=== PATIENT | female | born 1985 | race Caucasian/White ===

== ENCOUNTER 2017-10-09 01:33 | Emergency (ER) | payer OTHER ==
[~2017-10-09] VITALS: Ht 170.2 cm; Wt 115.7 kg
[~2017-10-09 01:33] MED LIST: NON; OMEPRAZOLE20 MG; PEPCID20 MG PO; PERCOCET 5/3251 TAB PO; RECTICARE30 GM TP; ZOFRAN4 MG PO
[2017-10-09] MEDS ORDERED: KETO10TA2 PO (02:49)
== END 2017-10-09 03:02 | disposition home or self-care (01) ==
LOC: ER 01:33
DX: S93.491A Sprain of other ligament of right ankle, initial encounter (principal); X50.0XXA Overexertion from strenuous movement or load, initial encounter; Y93.89 Activity, other specified; Y92.098 Other place in other non-institutional residence as the place of occurrence of the external cause; Y99.8 Other external cause status

== ENCOUNTER 2019-07-21 17:08 | Emergency (ER) | payer OTHER ==
[~2019-07-21] VITALS: Ht 170.2 cm; Wt 117.9 kg
[~2019-07-21 17:08] MED LIST changes: +KETO10TA2 PO
== END 2019-07-21 19:25 | disposition home or self-care (01) ==
LOC: ER 17:08
DX: R60.0 Localized edema (principal); R23.2 Flushing; R51 Headache

== ENCOUNTER 2020-05-01 14:03 | Emergency (ER) | payer OTHER ==
[~2020-05-01] VITALS: Ht 170.2 cm; Wt 122.5 kg
[2020-05-01] MEDS ORDERED: KETO10TA2 PO (15:37)
[2020-05-01] MEDS ORDERED: ORPHENADRINE C100 MG PO (15:37)
== END 2020-05-01 16:22 | disposition home or self-care (01) ==
LOC: ER 14:03
DX: S33.5XXA Sprain of ligaments of lumbar spine, initial encounter (principal); W18.39XA Other fall on same level, initial encounter; Y93.89 Activity, other specified; Y92.234 Operating room of hospital as the place of occurrence of the external cause; Y99.8 Other external cause status

== ENCOUNTER 2020-09-14 05:48 | Day surgery (SDC) | payer OTHER ==
[~2020-09-14 05:48] MED LIST changes: +ORPHENADRINE C100 MG PO
== END 2020-09-14 10:00 | disposition home or self-care (01) ==
LOC: AMB-ENDOS 05:48
PROVIDERS: ATTEND Surgery
DX: K29.60 Other gastritis without bleeding (principal); K44.9 Diaphragmatic hernia without obstruction or gangrene; Z20.822 Contact with and (suspected) exposure to COVID-19

== ENCOUNTER 2022-01-15 08:00 | Outpatient (CLI) | payer OTHER | END 2022-01-15 08:05 | disposition home or self-care (01) | LOC: PPH VACUNA 08:00 | PROVIDERS: ATTEND Emergency Medicine Pediatric Emergency Medicine | DX: Z23 Encounter for immunization (principal) ==

== ENCOUNTER 2022-05-21 07:51 | Outpatient (CLI) | payer OTHER | END 2022-05-21 07:52 | disposition home or self-care (01) | LOC: LAB 07:51 | DX: Z03.818 Encounter for observation for suspected exposure to other biological agents ruled out (principal) ==

== ENCOUNTER 2022-05-30 17:10 | Emergency (ER) | payer OTHER ==
[~2022-05-30] VITALS: Ht 157.5 cm; Wt 108.4 kg
== END 2022-05-30 21:19 | disposition home or self-care (01) ==
LOC: ER 17:10
DX: S30.0XXA Contusion of lower back and pelvis, initial encounter (principal); W01.0XXA Fall on same level from slipping, tripping and stumbling without subsequent striking against object, initial encounter; Y93.89 Activity, other specified; Y92.63 Factory as the place of occurrence of the external cause

== ENCOUNTER 2023-07-27 01:39 | Emergency (ER) | payer OTHER ==
[~2023-07-27] VITALS: Ht 167.6 cm; Wt 131.5 kg
[~2023-07-27 01:39] MED LIST changes: +METAXALONE800 MG PO
[2023-07-27] MEDS ORDERED: GUAIFENESIN/DEXTROMETHORPHAN 100 MG/5 ML ML PO ONE (02:15)
[2023-07-27] MEDS ORDERED: LEVALBUTEROL HCL 1.25 MG/3 ML SOLUTION IH SCH (02:15)
[2023-07-27] MEDS ORDERED: METHYLPREDNISOLONE SOD SUCC 125 MG VIAL IV ONE (02:15)
[2023-07-27 03:27] LABS: HEMATOCRIT 31.6 % (36.0-45.00); HEMOGLOBIN 10.3 g/dL (12.0-15.00); MEAN CELL VOLUME 76.9 fL (80.00-100.00); MEAN CORPUSCULAR HEMOGLOBIN 25.2 pg (27.00-32.0); MEAN CORPUSCULAR HGB CONC 32.7 g/dl (32.0-36.0); PLATELET COUNT 312 K/uL (150-450); RED BLOOD COUNT 4.11 M/uL (4.00-6.00)
[2023-07-27 03:46] LABS: ALBUMIN 2.5 gm/dL (3.4-5.0); BILIRUBIN TOTAL 0.22 mg/dL (0.3-1.2); CALCIUM 8.5 mg/dL (8.5-10.1); CREATININE SERUM 0.51 mg/dL (0.55-1.02); GFR 136.45; GLOBULINA 4.4 G/DL (2.4-3.5); POTASSIUM 4.12 mEq/L (3.5-5.1); TOTAL PROTEIN 6.9 gm/dL (6.4-8.2)
[2023-07-27 03:47] LABS: ABG PH 7.437 (7.35-7.45); ABG pCO2 32.2 mmHg (35-45); BASE EXCESS -1.9 mmol/l; BICARBONATE 21.3 mmol/l (23-25); SaO2 98.2 %; Tco2 22.3 mmol/l; allen test SATISFACTORY; o2 21 %; puncture site RADIAL RIGHT
[2023-07-27] MEDS ORDERED: TUSSIN100 MG/51 PO (03:53)
[2023-07-27] MEDS ORDERED: XOPENEX CO1.25 MG/0. IH (03:53)
[2023-07-27] MEDS ORDERED: ZITHROMAX500 MG PO (03:53)
== END 2023-07-27 04:04 | disposition home or self-care (01) ==
LOC: ER 01:39
PROVIDERS: General Practice
DX: R53.81 Other malaise (principal); J06.9 Acute upper respiratory infection, unspecified; Z20.822 Contact with and (suspected) exposure to COVID-19

== ENCOUNTER 2023-08-10 02:49 | Inpatient (IN) | payer OTHER ==
[~2023-08-10] VITALS: Ht 167.6 cm; Wt 2.7 kg
[~2023-08-10 02:49] MED LIST changes: +TUSSIN100 MG/51 PO; +XOPENEX CO1.25 MG/0. IH; +ZITHROMAX500 MG PO
[2023-08-10] MEDS ORDERED: GUAIFENESIN 200 MG/10 ML BLIST.PACK PO SCH (02:53)
[2023-08-10] MEDS ORDERED: PRENATAL TABLE1 EAC1 PO (02:56)
[2023-08-10] MEDS ORDERED: BUDEO.25 IH (02:57)
[2023-08-10] MEDS ORDERED: FAMOtidine 20 MG TABLET PO ONE (03:00)
[2023-08-10] MEDS ORDERED: RINGERS SOLUTION,LACTATED 1,000 ML IV SCH ×2 (07:15→14:15)
[2023-08-10] MEDS ORDERED: LEVALBUTEROL HCL 1.25 MG/3 ML SOLUTION IH ONE (12:00)
[2023-08-10] MEDS ORDERED: METOCLOPRAMIDE HCL 10 MG in DEXTROSE 5 % IN WATER 50 ML IV ONE (12:00)
[2023-08-10] MEDS ORDERED: CITRIC ACID/SODIUM CITRATE 30 ML BLIST.PACK PO ONE ×2 (12:00→13:09)
[2023-08-10 12:04] LABS: HEMATOCRIT 32.8 % (36.0-45.00); HEMOGLOBIN 10.6 g/dL (12.0-15.00); MEAN CELL VOLUME 76.1 fL (80.00-100.00); MEAN CORPUSCULAR HEMOGLOBIN 24.7 pg (27.00-32.0); MEAN CORPUSCULAR HGB CONC 32.5 g/dl (32.0-36.0); PLATELET COUNT 308 K/uL (150-450)
[2023-08-10] MEDS ORDERED: ERYTHROMYCIN BASE 1 GM TUBE OP ONE ×2 (12:15→14:15)
[2023-08-10] MEDS ORDERED: OXYTOCIN 10 UNITS/ML VIAL IV ONE (12:15)
[2023-08-10 12:25] LABS: INR < 0.93; PARTIAL THROMBOPLASTIN TIME 27.3 SECONDS (22.0-34.0); PROTHROMBIN TIME 9.8 SECONDS (9.0-11.5)
[2023-08-10 12:29] LABS: ALBUMIN 2.6 gm/dL (3.4-5.0); BILIRUBIN TOTAL 0.35 mg/dL (0.3-1.2); CALCIUM 8.5 mg/dL (8.5-10.1); CREATININE SERUM 0.65 mg/dL (0.55-1.02); GFR 103.13; GLOBULINA 4.5 G/DL (2.4-3.5); POTASSIUM 4.05 mEq/L (3.5-5.1); TOTAL PROTEIN 7.1 gm/dL (6.4-8.2)
[2023-08-10] MEDS ORDERED: OXYTOCIN 10 UNITS/ML VIAL ONE (12:44)
[2023-08-10] MEDS ORDERED: ERYTHROMYCIN BASE 3.5 GM OINT...G. OP ONE (12:44)
[2023-08-10] MEDS ORDERED: OXYTOCIN 1,000 ML IV ONE (14:15)
[2023-08-10] MEDS ORDERED: MORPHINE SULFATE 4 MG/ML CARTRIDGE IV PRN (14:15)
[2023-08-10] MEDS ORDERED: SIMETHICONE 125 MG CAPSULE PO SCH (17:00)
[2023-08-10] MEDS ORDERED: GABAPENTIN 300 MG CAPSULE PO SCH (17:00)
[2023-08-10] MEDS ORDERED: ONDANSETRON HCL 2 MG/ML VIAL IV SCH (18:00)
[2023-08-10] MEDS ORDERED: KETOROLAC TROMETHAMINE 30 MG VIAL IV SCH (18:00)
[2023-08-10] MEDS ORDERED: ACETAMINOPHEN 500 MG GEL..CAP PO SCH (18:00)
[2023-08-11 07:42] LABS: HEMATOCRIT 25.4 % (36.0-45.00); MEAN CELL VOLUME 76.6 fL (80.00-100.00); MEAN CORPUSCULAR HGB CONC 32.8 g/dl (32.0-36.0); PLATELET COUNT 244 K/uL (150-450); RED BLOOD COUNT 3.32 M/uL (4.00-6.00); RED CELL DISTRIBUTION WIDTH 16.3 % (11.5-14.5)
[2023-08-11 07:50] LABS: HEMOGLOBIN 8.3 g/dL (12.0-15.00)
[2023-08-11] MEDS ORDERED: OxyCODONE HCL 5 MG TABLET (ROXICODONE) PO PRN (08:00)
[2023-08-11] MEDS ORDERED: KETOROLAC TROMETHAMINE 10 MG TABLET PO SCH (08:00)
[2023-08-11] MEDS ORDERED: SENNOSIDES 1 TAB TABLET PO SCH (09:00)
[2023-08-11] MEDS ORDERED: ENOXAPARIN SODIUM 40 MG/0.4 ML SYRINGE SUBCUTANEO SCH (09:00)
== END 2023-08-12 11:01 | disposition home or self-care (01) | DRG 788 ==
LOC: OBS/DEL 02:49 → OB/GYN 11:29 → LDR 11:29 → OB/GYN 14:27
PROVIDERS: ADMIT Obstetrics & Gynecology; ATTEND Obstetrics & Gynecology
PROC: 4A1HXCZ Monitoring of Products of Conception, Cardiac Rate, External Approach (ICD-10-PCS; 2023-08-10)
PROC: 10D00Z1 Extraction of Products of Conception, Low, Open Approach (ICD-10-PCS; principal; 2023-08-10 12:00)
DX: O36.8130 Decreased fetal movements, third trimester, not applicable or unspecified (principal); Z3A.37 37 weeks gestation of pregnancy; Z37.0 Single live birth; Z20.822 Contact with and (suspected) exposure to COVID-19

== ENCOUNTER 2024-02-28 23:34 | Emergency (ER) | payer OTHER ==
[~2024-02-28] VITALS: Ht 167.6 cm; Wt 122.5 kg
[~2024-02-28 23:34] MED LIST changes: +BUDEO.25 IH; +PRENATAL TABLE1 EAC1 PO
[2024-02-29] MEDS ORDERED: 0.9 % SODIUM CHLORIDE 1,000 ML IV STA (01:40)
[2024-02-29] MEDS ORDERED: ONDANSETRON HCL 2 MG/ML VIAL IV STA (01:42)
[2024-02-29] MEDS ORDERED: FAMOtidine 10 MG/ML (4ML VIAL) IV PUSH STA (01:42)
[2024-02-29] MEDS ORDERED: HYOSCYAMINE SULFATE 0.125 MG TAB.SUBL SL ONE (01:45)
[2024-02-29 02:48] LABS: URINE APPEARANCE Cloudy; URINE BILIRRUBIN Negative (NEGATIVE); URINE BLOOD Negative; URINE COLOR Dark Yellow; URINE GLUCOSE Negative (NEGATIVE); URINE KETONE Trace (NEGATIVE); URINE LEUKOCYTE Negative; URINE NITRATE Negative
[2024-02-29 02:50] LABS: ALBUMIN 3.3 gm/dL (3.4-5.0); BILIRUBIN TOTAL 0.17 mg/dL (0.3-1.2); CALCIUM 8.1 mg/dL (8.5-10.1); CREATININE SERUM 0.68 mg/dL (0.55-1.02); GFR 97.36; GLOBULINA 4.9 G/DL (2.4-3.5); POTASSIUM 3.56 mEq/L (3.5-5.1); TOTAL PROTEIN 8.2 gm/dL (6.4-8.2)
[2024-02-29 02:52] LABS: HEMATOCRIT 33.1 % (36.0-45.00); HEMOGLOBIN 10.6 g/dL (12.0-15.00); MEAN CORPUSCULAR HEMOGLOBIN 23.8 pg (27.00-32.0); MEAN CORPUSCULAR HGB CONC 32.2 g/dl (32.0-36.0); PLATELET COUNT 378 K/uL (150-450); RED BLOOD COUNT 4.47 M/uL (4.00-6.00); RED CELL DISTRIBUTION WIDTH 18.2 % (11.5-14.5)
[2024-02-29 02:52] LABS: URINE EPITHELIAL CELLS 123.2 uL (0.0-38.8); URINE RBC 34.2 uL (0.0-20.8); URINE WBC 51.3 uL (0.0-23.2)
[2024-02-29 03:58] LABS: URINE BACTERIA > 9821.5 uL (0.0-1933); URINE CAST 0.45 uL (0.0-1.40); URINE PROTEIN 100 (NEGATIVE)
== END 2024-02-29 05:43 | disposition home or self-care (01) ==
LOC: ER 23:36
DX: K52.9 Noninfective gastroenteritis and colitis, unspecified (principal); E86.0 Dehydration; R14.3 Flatulence; R14.1 Gas pain; R14.2 Eructation